=== PATIENT | male | born 1955 | race Caucasian/White ===

== ENCOUNTER → 2024-12-07 07:14 | Outpatient (REF) | payer OTHER, SELFPAY | LOC: PAVMRI 07:14 | PROVIDERS: ATTENDING PHYSICIAN Specialist; FAMILY PHYSICIAN Family Medicine | DX: M54.16 Radiculopathy, lumbar region (principal) | CPT/HCPCS: 72148 ==

== ENCOUNTER → 2025-01-12 09:59 | Outpatient (REF) | payer OTHER, SELFPAY | LOC: HWRAD 09:59 | PROVIDERS: ATTENDING PHYSICIAN Internal Medicine Cardiovascular Disease; FAMILY PHYSICIAN Family Medicine | DX: I25.10 Atherosclerotic heart disease of native coronary artery without angina pectoris (principal); E78.5 Hyperlipidemia, unspecified; I25.84 Coronary atherosclerosis due to calcified coronary lesion; R63.1 Polydipsia | CPT/HCPCS: 76770 ==

== ENCOUNTER → 2025-04-26 14:17 | Outpatient (REF) | payer OTHER, SELFPAY | LOC: RAD 14:17 | PROVIDERS: FAMILY PHYSICIAN Family Medicine | DX: M25.652 Stiffness of left hip, not elsewhere classified (principal) | CPT/HCPCS: 73502 ==